=== PATIENT | male | born 1990 | race Two or more races ===

== ENCOUNTER 2016-07-05 10:33 | Emergency (ER) | payer SELFPAY ==
[2016-07-05] MEDS ORDERED: IOPAMIDOL 300 (61%) 150 ML VIAL IV ONE (10:34)
[2016-07-05 11:05] LABS: SPECIFIC GRAVITY 1.015 (1.001-1.030); URINE BILIRUBIN NEGATIVE (NEGATIVE); URINE BLOOD TRACE (NEGATIVE); URINE GLUCOSE (UA) NEGATIVE (NEGATIVE); URINE LEUKOCYTE ESTERASE NEGATIVE (NEGATIVE); URINE NITRITE NEGATIVE (NEGATIVE); URINE PROTEIN NEGATIVE (NEGATIVE); URINE UROBILINOGEN NORMAL (0-1 mg/dl)
[2016-07-05 11:06] LABS: URINE APPEARANCE CLEAR; URINE COLOR YELLOW
[2016-07-05 11:30] LABS: URINE BACTERIA 0; URINE EPITHELIAL CELLS 0-1 /hpf; URINE RBC 0-1 /hpf; URINE WBC NEG /hpf
[2016-07-05] MEDS ORDERED: HYDROMORPHONE HCL 1 MG/ML SYRINGE ONE (11:58)
[2016-07-05] MEDS ORDERED: ONDANSETRON 4 MG/2ML 2 ML VIAL ONE (11:58)
[2016-07-05 12:04] LABS: ABSOLUTE NEUTROPHIL COUNT 2.9 K/mm3 (1.8-7.7); BASO % 0.5 % (0.2-1.0); EOS # 0.2 (0.0-0.5); EOS % 2.8 % (0.9-2.9); HEMATOCRIT 42.7 % (32.0-52.0); HEMOGLOBIN 14.2 gm/l (14.0-18.0); IMM NEUT% 0.2 % (0-1); LYMPH # 2.1 (1.0-4.8); LYMPH % 35.8 % (15-45); MEAN CELL VOLUME 89.9 fl (80.0-94.0); MEAN CORPUSCULAR HEMOGLOBIN 29.9 pg (27.0-31.0); MEAN CORPUSCULAR HGB CONC 33.3 g/dl (33.0-37.0); MEAN PLATELET VOLUME 8.7 fl (7.4-10.4); MONO # 0.6 (0.0-0.8); MONO % 10.1 % (4-12); NEUT % 50.6 % (43-75); PLATELET COUNT 260 K/mm3 (130-400); RED CELL DISTRIBUTION WIDTH 12.3 % (11.5-14.5)
--- NOTE | 2016-07-05 12:47 | CT ---
ABD/PELVIS W/ CON COMPARISON: None. HISTORY: Lower abdomen pain worsening for 2 weeks, worst at night, exacerbated by walking and alleviated by drinking tea. Right lower quadrant tenderness. Technique: Intravenous injection 125 mL Isovue 300. Using a [employer] Aquilion [address] scanner, images were obtained from the diaphragm to the floor the pelvis. An automated dose reduction technique was used to minimize patient radiation dose. Dose information: CTDIvol (mGy): 21.70 DLP(mGycm): 1207.20 FINDINGS: Lung bases: Normal. Inferior mediastinum and heart: Normal. Liver: Normal. Gallbladder:Normal. Bile ducts: Normal. Pancreas: Normal. Spleen: Normal. Adrenal glands: Normal. Kidneys: Normal. Ureters: Normal Urinary bladder: Normal. Prostate gland and seminal vesicles: Normal. Blood vessels: Normal Lymph nodes: Normal Stomach: Normal Duodenum: Normal Small intestine: Normal Appendix: Normal Colon: Normal Abdominal wall and supporting musculature: Normal Bones: Normal IMPRESSION: Normal study. Normal appendix. No lymphadenopathy. No evidence of inflammation. The report was sent to the emergency department [facility] record [facility] 07/05/2016 at 12:49
[2016-07-05 13:40] LABS: ALB/GLOB RATIO 1.4 (>1.0); ALBUMIN 4.2 gm/dL (3.5-5.7); CALCIUM 9.1 mg/dL (8.6-10.3)
== END 2016-07-05 13:56 | disposition home or self-care (01) ==
LOC: ED 10:33
DX: R10.30 Lower abdominal pain, unspecified (principal); R50.9 Fever, unspecified; R11.10 Vomiting, unspecified